=== PATIENT | female | born 1990 | race Caucasian/White ===

== ENCOUNTER 2018-06-20 12:32 | Outpatient (CLI) | payer OTHER ==
[~2018-06-20 12:32] MED LIST: ANTICONCEPTIVOS; CATAFLAM50 MG PO; INTESTINEX1 CA1 PO; MEDROL4 MG PO; MOTRIN800 MG PO; PROVIDA DHA CA1 EACH PO; SYNTHROID50 MCG PO; ZITHROMAX200 MG PO; ZYRTEC10 MG
== END 2018-06-20 12:42 | disposition home or self-care (01) ==
LOC: SONOGRAMA 12:32
DX: E03.8 Other specified hypothyroidism (principal); E04.1 Nontoxic single thyroid nodule

== ENCOUNTER 2019-10-06 18:48 | Emergency (ER) | payer OTHER ==
[~2019-10-06] VITALS: Ht 165.1 cm; Wt 70.3 kg
[2019-10-06] MEDS ORDERED: CAMILA0.35 MG (19:41)
[2019-10-07] MEDS ORDERED: KETO10TA2 PO (02:06)
== END 2019-10-07 02:08 ==
LOC: ER 18:48
DX: R10.31 Right lower quadrant pain (principal); R10.33 Periumbilical pain
CPT/HCPCS: 74177; Q9965

== ENCOUNTER 2019-10-17 11:45 | Outpatient (CLI) | payer OTHER ==
[~2019-10-17 11:45] MED LIST changes: +CAMILA0.35 MG; +KETO10TA2 PO
== END 2019-10-17 11:47 | disposition home or self-care (01) ==
LOC: SONOGRAMA 11:45
DX: R10.31 Right lower quadrant pain (principal); R10.32 Left lower quadrant pain

== ENCOUNTER 2020-03-13 12:18 | Outpatient (CLI) | payer OTHER | END 2020-03-13 15:46 | disposition home or self-care (01) | LOC: SONOGRAMA 12:18 | DX: E04.1 Nontoxic single thyroid nodule (principal) ==

== ENCOUNTER 2020-04-03 14:51 | Outpatient (CLI) | payer OTHER | END 2020-04-03 14:52 | disposition home or self-care (01) | LOC: SONOGRAMA 14:51 | PROVIDERS: ATTEND Specialist | DX: N83.01 Follicular cyst of right ovary (principal); N83.02 Follicular cyst of left ovary ==

== ENCOUNTER 2020-11-27 10:57 | Outpatient (CLI) | payer OTHER | END 2020-11-27 12:00 | disposition home or self-care (01) | LOC: OFIC 805 10:57 | PROVIDERS: ATTEND Otolaryngology | DX: J30.89 Other allergic rhinitis (principal); J33.8 Other polyp of sinus; R09.81 Nasal congestion ==

== ENCOUNTER 2020-12-24 13:22 | Outpatient (CLI) | payer OTHER | END 2020-12-24 14:16 | disposition home or self-care (01) | LOC: OFIC 805 13:22 | PROVIDERS: ATTEND Otolaryngology | DX: J30.89 Other allergic rhinitis (principal); J33.8 Other polyp of sinus ==

== ENCOUNTER 2021-01-13 12:24 | Outpatient (CLI) | payer OTHER | END 2021-01-13 13:54 | disposition home or self-care (01) | LOC: OFIC 805 12:24 | PROVIDERS: ATTEND Otolaryngology Otology & Neurotology | DX: J30.89 Other allergic rhinitis (principal); J33.8 Other polyp of sinus; R09.81 Nasal congestion ==

== ENCOUNTER → 2021-03-02 | Outpatient (CLI) | payer OTHER | END | disposition home or self-care (01) | LOC: PRENATAL 15:30 | PROVIDERS: ATTEND Obstetrics & Gynecology Maternal & Fetal Medicine | DX: Z36.89 Encounter for other specified antenatal screening (principal); O36.80X1 Pregnancy with inconclusive fetal viability, fetus 1; Z3A.13 13 weeks gestation of pregnancy ==

== ENCOUNTER → 2021-04-27 | Outpatient (CLI) | payer OTHER ==
[~2021-04-27] MED LIST changes: +FOLIC ACID0.8 M1; +PRENATABS FA T1 EACH; +ZIRTEC
== END | disposition home or self-care (01) ==
LOC: PRENATAL 09:30
PROVIDERS: ATTEND Obstetrics & Gynecology Maternal & Fetal Medicine
DX: O35.0XX1 Maternal care for (suspected) central nervous system malformation in fetus, fetus 1 (principal); O35.3XX1 Maternal care for (suspected) damage to fetus from viral disease in mother, fetus 1; O98.512 Other viral diseases complicating pregnancy, second trimester; Z36.89 Encounter for other specified antenatal screening; Z3A.20 20 weeks gestation of pregnancy

== ENCOUNTER 2021-05-01 17:40 | Emergency (ER) | payer OTHER ==
[~2021-05-01] VITALS: Ht 165.1 cm; Wt 75.7 kg
[~2021-05-01 17:40] MED LIST changes: -FOLIC ACID0.8 M1; -PRENATABS FA T1 EACH; -ZIRTEC
[2021-05-01] MEDS ORDERED: PRENATABS FA T1 EACH (18:02)
[2021-05-01] MEDS ORDERED: ZIRTEC (18:03)
[2021-05-01] MEDS ORDERED: FOLIC ACID0.8 M1 (18:04)
== END 2021-05-01 22:09 | disposition home or self-care (01) ==
LOC: ER 17:40
DX: J30.89 Other allergic rhinitis (principal); J32.8 Other chronic sinusitis; B34.9 Viral infection, unspecified; Z11.52 Encounter for screening for COVID-19

== ENCOUNTER 2021-05-14 09:32 | Outpatient (CLI) | payer OTHER ==
[~2021-05-14 09:32] MED LIST changes: +FOLIC ACID0.8 M1; +PRENATABS FA T1 EACH; +ZIRTEC
== END 2021-05-14 10:44 | disposition home or self-care (01) ==
LOC: OBS/DEL 09:32
PROVIDERS: ATTEND Specialist
DX: O23.592 Infection of other part of genital tract in pregnancy, second trimester (principal); O26.892 Other specified pregnancy related conditions, second trimester; J32.8 Other chronic sinusitis; Z3A.22 22 weeks gestation of pregnancy

== ENCOUNTER 2021-07-19 13:56 | Outpatient (CLI) | payer OTHER | END 2021-07-19 14:30 | disposition home or self-care (01) | LOC: PRENATAL 13:56 | PROVIDERS: ATTEND Obstetrics & Gynecology Maternal & Fetal Medicine | DX: O26.843 Uterine size-date discrepancy, third trimester (principal); O35.0XX1 Maternal care for (suspected) central nervous system malformation in fetus, fetus 1; Z36.89 Encounter for other specified antenatal screening; Z3A.33 33 weeks gestation of pregnancy ==

== ENCOUNTER 2021-09-06 06:23 | Inpatient (IN) | payer OTHER ==
[~2021-09-06] VITALS: Ht 165.1 cm; Wt 81.6 kg
[2021-09-06] MEDS ORDERED: IRON236 MG (08:20)
[2021-09-06] MEDS ORDERED: ZYRTEC10 M2 PO (08:58)
== END 2021-09-08 12:58 | disposition home or self-care (01) | DRG 807 ==
LOC: OB/GYN 06:23 → SURG-SUITE 06:47 → LDR 06:47 → SURG-SUITE 16:10
PROVIDERS: ADMIT Specialist; ATTEND Specialist
PROC: 10E0XZZ Delivery of Products of Conception, External Approach (ICD-10-PCS; principal; 2021-09-06)
PROC: 3E0P7VZ Introduction of Hormone into Female Reproductive, Via Natural or Artificial Opening (ICD-10-PCS; 2021-09-06)
PROC: 10907ZC Drainage of Amniotic Fluid, Therapeutic from Products of Conception, Via Natural or Artificial Opening (ICD-10-PCS; 2021-09-06)
PROC: 4A1HXFZ Monitoring of Products of Conception, Cardiac Rhythm, External Approach (ICD-10-PCS; 2021-09-06)
DX: O80 Encounter for full-term uncomplicated delivery (principal); Z37.0 Single live birth; Z3A.39 39 weeks gestation of pregnancy

== ENCOUNTER 2022-05-18 09:03 | Outpatient (CLI) | payer OTHER ==
[~2022-05-18 09:03] MED LIST changes: +IRON236 MG; +ZYRTEC10 M2 PO
== END 2022-05-18 09:13 | disposition home or self-care (01) ==
LOC: SONOGRAMA 09:03
PROVIDERS: ATTEND Specialist
DX: N91.2 Amenorrhea, unspecified (principal)

== ENCOUNTER 2022-08-09 11:05 | Outpatient (CLI) | payer OTHER | END 2022-08-09 11:15 | disposition home or self-care (01) | LOC: PPH VACUNA 11:05 | PROVIDERS: ATTEND Emergency Medicine Pediatric Emergency Medicine | DX: Z23 Encounter for immunization (principal) ==

== ENCOUNTER 2022-08-09 11:05 | Outpatient (CLI) | payer OTHER | END 2022-08-09 11:15 | disposition home or self-care (01) | LOC: PPH VACUNA 11:05 | PROVIDERS: ATTEND Emergency Medicine Pediatric Emergency Medicine | DX: Z23 Encounter for immunization (principal) ==

== ENCOUNTER 2022-12-14 16:23 | Emergency (ER) | payer OTHER ==
[~2022-12-14] VITALS: Ht 165.1 cm; Wt 64.9 kg
== END 2022-12-14 20:12 | disposition home or self-care (01) ==
LOC: ER 16:23
DX: G43.909 Migraine, unspecified, not intractable, without status migrainosus (principal); Z88.8 Allergy status to other drugs, medicaments and biological substances; Z91.030 Bee allergy status; Z91.013 Allergy to seafood

== ENCOUNTER 2023-12-30 14:48 | Emergency (ER) | payer OTHER ==
[~2023-12-30] VITALS: Ht 165.1 cm; Wt 68.0 kg
[~2023-12-30 14:48] MED LIST changes: +DICLOFENAC POTA50 MG PO; +METAXALONE800 MG PO
[2023-12-30] MEDS ORDERED: TOPAMAX50 MG PO (16:24)
[2023-12-30 18:05] LABS: HEMATOCRIT 36.3 % (36.0-45.00); HEMOGLOBIN 12.5 g/dL (12.0-15.00); MEAN CELL VOLUME 86.8 fL (80.00-100.00); MEAN CORPUSCULAR HEMOGLOBIN 29.8 pg (27.00-32.0); MEAN CORPUSCULAR HGB CONC 34.3 g/dl (32.0-36.0); PLATELET COUNT 264 K/uL (150-450); RED BLOOD COUNT 4.19 M/uL (4.00-6.00)
[2023-12-30 18:40] LABS: CALCIUM 8.6 mg/dL (8.5-10.1); CREATININE SERUM 0.74 mg/dL (0.55-1.02); GFR 89.84; POTASSIUM 3.88 mEq/L (3.5-5.1); TSH 0.558 uIU/mL (0.358-3.74)
== END 2023-12-30 20:34 | disposition home or self-care (01) ==
LOC: ER 14:49
PROVIDERS: General Practice
DX: R00.2 Palpitations (principal); Z91.013 Allergy to seafood; Z91.018 Allergy to other foods; Z91.048 Other nonmedicinal substance allergy status

== ENCOUNTER → 2024-07-10 | Emergency (ER) | payer OTHER ==
[~2024-07-10] VITALS: Ht 165.1 cm; Wt 68.9 kg
[~2024-07-10] MED LIST changes: +KETOROLAC TROMETHAMINE 30 MG VIAL IM STA; +KETOROLAC TROMETHAMINE 30 MG VIAL ONE; +TOPAMAX50 MG PO
[2024-07-10 10:49] VITALS: BP 11/72; O2SAT 96
[2024-07-10 12:27] LABS: HEMATOCRIT 38.6 % (36.0-45.00); MEAN CELL VOLUME 88.1 fL (80.00-100.00); MEAN CORPUSCULAR HEMOGLOBIN 29.7 pg (27.00-32.0); MEAN CORPUSCULAR HGB CONC 33.7 g/dl (32.0-36.0); PLATELET COUNT 286 K/uL (150-450); RED BLOOD COUNT 4.38 M/uL (4.00-6.00); RED CELL DISTRIBUTION WIDTH 13.5 % (11.5-14.5)
[2024-07-10 12:53] LABS: ALBUMIN 3.8 gm/dL (3.4-5.0); BILIRUBIN TOTAL 0.42 mg/dL (0.3-1.2); CREATININE SERUM 0.76 mg/dL (0.55-1.02); GFR 87.11; GLOBULINA 4.2 G/DL (2.4-3.5); POTASSIUM 3.82 mEq/L (3.5-5.1)
[2024-07-10 13:14] LABS: URINE APPEARANCE Clear; URINE BILIRRUBIN Negative (NEGATIVE); URINE BLOOD Negative; URINE COLOR Yellow; URINE GLUCOSE Negative (NEGATIVE); URINE KETONE Negative (NEGATIVE); URINE LEUKOCYTE Small; URINE NITRATE Negative; URINE PROTEIN Negative (NEGATIVE); URINE UROBILINOGEN 0.2 E.U./dl
[2024-07-10 13:17] LABS: URINE BACTERIA 173.8 uL (0.0-1933); URINE RBC 5.4 uL (0.0-20.8); URINE WBC 7.8 uL (0.0-23.2)
== END | disposition home or self-care (01) ==
LOC: ER 10:43
PROVIDERS: General Practice
DX: M54.89 Other dorsalgia (principal); Z91.013 Allergy to seafood; Z91.018 Allergy to other foods; Z91.048 Other nonmedicinal substance allergy status

== ENCOUNTER 2024-07-25 10:54 | Emergency (ER) | payer OTHER ==
[~2024-07-25] VITALS: Ht 152.4 cm; Wt 68.9 kg
[~2024-07-25 10:54] MED LIST changes: -KETOROLAC TROMETHAMINE 30 MG VIAL IM STA; -KETOROLAC TROMETHAMINE 30 MG VIAL ONE
[2024-07-25] MEDS ORDERED: 0.9 % SODIUM CHLORIDE 1,000 ML IV STA (11:14)
[2024-07-25 12:01] LABS: MEAN CELL VOLUME 85.1 fL (80.00-100.00); MEAN CORPUSCULAR HEMOGLOBIN 29.1 pg (27.00-32.0); MEAN CORPUSCULAR HGB CONC 34.2 g/dl (32.0-36.0); PLATELET COUNT 304 K/uL (150-450); RED BLOOD COUNT 4.46 M/uL (4.00-6.00); RED CELL DISTRIBUTION WIDTH 13.5 % (11.5-14.5)
[2024-07-25 12:24] LABS: CREATININE SERUM 0.64 mg/dL (0.55-1.02); GFR 106.22; POTASSIUM 3.88 mEq/L (3.5-5.1)
[2024-07-25] MEDS ORDERED: ACETAMINOPHEN 500 MG GEL..CAP PO ONE (13:15)
[2024-07-25] MEDS ORDERED: DIPHENHYDRAMINE HCL 50 MG/ML VIAL 1ML IV ONE (14:30)
[2024-07-25] MEDS ORDERED: METHYLPREDNISOLONE SOD SUCC 125 MG VIAL IV ONE (14:30)
== END 2024-07-25 15:28 | disposition home or self-care (01) ==
LOC: ER 10:55
PROVIDERS: Emergency Medicine
DX: K64.8 Other hemorrhoids (principal); Z91.018 Allergy to other foods; Z91.013 Allergy to seafood

== ENCOUNTER 2024-10-13 05:43 | Emergency (ER) | payer OTHER ==
[~2024-10-13] VITALS: Ht 165.1 cm; Wt 70.3 kg
[2024-10-13] MEDS ORDERED: KETOROLAC TROMETHAMINE 60 MG VIAL IM ONE (06:15)
[2024-10-13] MEDS ORDERED: GUAIFENESIN/DEXTROMETHORPHAN 10ML BLIST.PACK PO ONE (06:15)
[2024-10-13 08:17] LABS: HEMATOCRIT 39.1 % (36.0-45.00); HEMOGLOBIN 13.1 g/dL (12.0-15.00); MEAN CORPUSCULAR HEMOGLOBIN 29.5 pg (27.00-32.0); MEAN CORPUSCULAR HGB CONC 33.6 g/dl (32.0-36.0); PLATELET COUNT 214 K/uL (150-450); RED BLOOD COUNT 4.44 M/uL (4.00-6.00); RED CELL DISTRIBUTION WIDTH 13.1 % (11.5-14.5)
== END 2024-10-13 08:56 | disposition home or self-care (01) ==
LOC: ER 05:46
PROVIDERS: General Practice
DX: B34.9 Viral infection, unspecified (principal); R53.81 Other malaise; Z20.822 Contact with and (suspected) exposure to COVID-19; Z91.013 Allergy to seafood; Z91.018 Allergy to other foods; Z91.030 Bee allergy status

== ENCOUNTER 2025-01-05 08:24 | Emergency (ER) | payer OTHER ==
[~2025-01-05] VITALS: Ht 165.1 cm; Wt 72.6 kg
[2025-01-05] MEDS ORDERED: ELETRIPTAN HBR40 MG PO (08:46)
[2025-01-05] MEDS ORDERED: ORPHENADRINE CITRATE 30 MG/ML AMPUL IM STA (09:49)
[2025-01-05] MEDS ORDERED: KETOROLAC TROMETHAMINE 60 MG VIAL IM STA (09:50)
== END 2025-01-05 10:11 | disposition home or self-care (01) ==
LOC: ER 08:27
DX: M79.18 Myalgia, other site (principal); E03.8 Other specified hypothyroidism; Z91.013 Allergy to seafood; Z91.018 Allergy to other foods; Z91.030 Bee allergy status